=== PATIENT | male | born 1955 | race Caucasian/White ===

== ENCOUNTER 2017-06-29 07:27 | Emergency (ER) | payer BC, OTHER ==
[~2017-06-29] VITALS: Ht 180.3 cm; Wt 74.2 kg
[2017-06-29 10:30] VITALS: BP 165/101
== END 2017-06-29 10:32 | disposition home or self-care (01) ==
LOC: ED 09:26
DX: S22.32XA Fracture of one rib, left side, initial encounter for closed fracture (principal); S00.33XA Contusion of nose, initial encounter; H72.92 Unspecified perforation of tympanic membrane, left ear; Y04.0XXA Assault by unarmed brawl or fight, initial encounter; Y93.89 Activity, other specified; Y92.89 Other specified places as the place of occurrence of the external cause; Y99.8 Other external cause status
CPT/HCPCS: 70450; 70486; 99284

== ENCOUNTER 2021-06-28 23:46 | Emergency (ER) | payer MEDICARE, BC ==
[~2021-06-28] VITALS: Ht 180.3 cm; Wt 70.8 kg
[2021-06-28 23:54] VITALS: BP 126/73
[2021-06-29] MEDS ORDERED: LIDOCAINE-MPF 1%, 5ML INFIL ONE (00:30)
--- NOTE | 2021-06-29 01:22 | NUR ---
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
[2021-06-29] MEDS ORDERED: AMPICILLIN/SULBACTAM 3 GM in SODIUM CHLORIDE 0.9% 100 ML IV ONE (01:30)
[2021-06-29] MEDS ORDERED: SODIUM CHLORIDE 0.9% 1,000ML IVBOLUS ONE (01:30)
[2021-06-29] MEDS ORDERED: VANCOMYCIN PER PHARMACY MC ONE (01:30)
[2021-06-29] MEDS ORDERED: SODIUM CHLORIDE FLUSH 10ML SYR IVF ONE (01:30)
[2021-06-29] MEDS ORDERED: VANCOMYCIN 1,700 MG in SODIUM CHLORIDE 0.9% 250 ML IV ONE (02:00)
--- NOTE | 2021-06-29 02:30 | NUR ---
Patient eloped per ER screener.
--- NOTE | 2021-06-29 03:19 | NUR ---
Per MENDEL Biggs, called patient and LVM stating he has significant findings in his XR and advised patient to come back to be treated appropriately.
== END 2021-06-29 02:49 | disposition left against medical advice (07) ==
LOC: ED 23:51
DX: L03.011 Cellulitis of right finger (principal)
CPT/HCPCS: 99283; 99284